=== PATIENT | female | born 1995 ===

== ENCOUNTER → 2017-11-17 | Outpatient (CLI) | payer OTHER ==
[~2017-11-17] MED LIST: ALBU90OI61 INH; CEPH500 PO; IBUP800 PO; PRED20 PO
[2017-11-18 14:25] LABS: Source VAG/CERVIX
[2017-11-18 14:28] LABS: Source VAG/CERVIX
== END ==
LOC: LAB SHORT 14:59 → LAB 14:59
PROVIDERS: Obstetrics & Gynecology
DX: Z11.3 Encounter for screening for infections with a predominantly sexual mode of transmission (principal); Z01.419 Encounter for gynecological examination (general) (routine) without abnormal findings
CPT/HCPCS: 87491; 87591; 87661; G0123

== ENCOUNTER → 2018-01-04 | Outpatient (CLI) | payer OTHER ==
[2018-01-08 01:07] LABS: CHLAMYDIA BY NAA Negative (Negative); GONOCOCCUS BY NAA Negative (Negative); TRICH VAG BY NAA Negative (Negative)
== END | disposition home or self-care (01) ==
LOC: LAB 11:56 → LAB SHORT 11:56
PROVIDERS: Obstetrics & Gynecology
DX: Z11.3 Encounter for screening for infections with a predominantly sexual mode of transmission (principal)
CPT/HCPCS: 87491; 87591; 87661

== ENCOUNTER 2018-04-17 22:36 | Emergency (ER) | payer OTHER ==
[~2018-04-17] VITALS: Ht 160 cm; Wt 90.7 kg
[2018-04-17] MEDS ORDERED: ALBU90OI INH (23:01)
[2018-04-18] MEDS ORDERED: ALBU90OI INH (00:12)
== END 2018-04-18 00:33 | disposition home or self-care (01) ==
LOC: ER 22:36
DX: Z76.0 Encounter for issue of repeat prescription (principal); F17.200 Nicotine dependence, unspecified, uncomplicated
CPT/HCPCS: 99281